=== PATIENT | male | born 1965 | race Caucasian/White ===

== ENCOUNTER 2020-06-27 08:05 | Observation (INO) | payer OTHER, SELFPAY ==
[2020-06-27] VITALS (11 sets, daily range): BP systolic 114–153; BP diastolic 58–95; PULSE 92–117; RESP 16–22; TEMP 36.8–39.6; O2SAT 96–99; BMI 35.9; BMI 40.0
--- NOTE | 2020-06-27 08:25 | CT_ITS ---
PROCEDURE: CT LOWER LEG RT W CON CLINICAL HISTORY: right leg cellulitis concern for NSTI COMPARISON: No exams were available for comparison TECHNIQUE: Axial images obtained with sagittal and coronal reformats. All CT scans at the facility use one or more dose reduction, viz: automated exposure control, ma/kV adjustment per patient size (including targeted exams where dose is matched to indication, i.e. head), or iterative reconstruction technique. FINDINGS: The visualized distal left femur and entire tibia and fibula appears intact. There is no demonstrated fracture, periosteal reaction or lytic/blastic destructive bony abnormality. Mild degenerative arthrosis of the proximal tibial fibular and medial femorotibial articulations. 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 There is extensive diffuse skin thickening and reticular pattern low-density edema in the superficial and deep subcutaneous fat of the entire lower extremity demonstrated without evidence of necrotizing fasciitis or involvement of the deep fascia between the muscles. No abscess or drainable loculated fluid collection is identified. Ankle mortise is anatomic. Intact talar dome and calcaneus. There is a small enthesophyte is seen of the calcaneus posteriorly at the insertion site of the Achilles tendon. Mild arthrosis of the tibiotalar, subtalar, talonavicular and calcaneocuboid articulations of the ankle/hindfoot. IMPRESSION: 1.Diffuse skin thickening and reticular pattern low-density edema in superficial/deep subcutaneous fat of the entire lower extremity is demonstrated, compatible with a given history of cellulitis. No evidence of necrotizing fasciitis or abscess formation depicted 2. 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 3. 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 Dictated by: Alessia Graham 06/27/2020 09:58 Electronically signed by Alessia Graham in [facility] 06/27/2020 09:58
--- NOTE | 2020-06-27 08:27 | HMH.EDGENADL ---
ED Disposition Clinical Impression: Cellulitis Qualifiers: Site of cellulitis: extremity Site of cellulitis of extremity: lower extremity Laterality: right Qualified Code(s): L03.115 - Cellulitis of right lower limb Disposition: Admitted As Inpatient Condition on Discharge: Fair Referrals: PCP,No [Primary Care Provider] - Time of Disposition: 10:09 - Critical Care Critical Care Time: No Attestation: On 06/27/20, the high probability of a clinically significant, sudden or life threatening deterioration of the following system(s) required my full and direct attention, intervention and personal management. The time I documented below is in addition to time spent performing reported procedures but includes the following listed in this critical care notation. Medical Decision Making - Medical Records Medical records reviewed: Yes: I reviewed the patient's medical records. - Oswald Inquiry Pt receiving controlled substance: No Vital Signs: 06/27/20 08:17 06/27/20 08:37 06/27/20 09:30 Temperature 103.3 F H Temperature Source Oral Pulse Rate [Radial] 117 H 103 H 100 H Respiratory Rate 18 22 22 Blood Pressure [Right Arm] 148/95 H 138/79 128/74 Blood Pressure Mean [Right Arm] 112 98 92 Blood Pressure Source [Right Arm] Automatic Cuff Automatic Cuff Automatic Cuff Blood Pressure Position [Right Arm] Sitting Supine Supine 02 Sat by Pulse Oximetry 98 99 98 Oxygen Delivery Method Room Air Room Air Room Air 06/27/20 10:00 06/27/20 10:30 Temperature 99.4 F Temperature Source Oral Pulse Rate [Radial] 99 H 96 H Respiratory Rate 22 22 Blood Pressure [Right Arm] 124/73 114/69 Blood Pressure Mean [Right Arm] 90 84 Blood Pressure Source [Right Arm] Automatic Cuff Automatic Cuff Blood Pressure Position [Right Arm] Supine Supine 02 Sat by Pulse Oximetry 97 98 Oxygen Delivery Method Room Air Room Air - Lab Data Lab Results 06/27/20 08:25: WBC 9.1, RBC 4.70, Hgb 13.6 L, Hct 41.0 L, MCV 87.3, MCH 28.9, MCHC 33.1, RDW 13.4, Plt Count 208, MPV 8.6, Neut % (Auto) 88.4 H, Lymph % (Auto) 5.7 L, [place] % (Auto) 5.3, Eos % (Auto) 0.4, Baso % (Auto) 0.3, Neut # (Auto) 8.0 H, Lymph # (Auto) 0.5 L, [place] # (Auto) 0.5, Eos # (Auto) 0.0, Baso # (Auto) 0.0, Total Counted 100, Neutrophils % (Manual) 87 H, Lymphocytes % (Manual) 7 L, Monocytes % (Manual) 5, Eosinophils % (Manual) 1, Platelet Estimate Normal, RBC Morphology Normal 06/27/20 08:25: Sodium 134 L, Potassium 3.5, Chloride 97 L, Carbon Dioxide 27, Anion Gap 13.5, BUN 15, Creatinine 0.90, Estimated Creat Clear 149, Estimated GFR 88, Est GFR ( Amer) 106, Glucose 129 H, Calcium 8.7, Total Bilirubin 1.0, AST 26, ALT 22, Alkaline Phosphatase 96, Total Creatine Kinase 45 L, Total Protein 7.1, Albumin 3.6, Globulin 3.5 H, Albumin/Globulin Ratio 1.0 L 06/27/20 08:25: Lactate 0.8 Result diagrams: 06/27/20 08:25 06/27/20 08:25 Orders (Tests/Meds): ED MEDICATIONS Generic Name Dose Route Start Last Admin Trade Name Freq PRN Reason Stop Dose Admin Vancomycin HCl 2,000 mg/ 250 mls @ 125 mls/hr 06/27/20 08:45 06/27/20 08:58 Sodium Chloride IV 06/27/20 10:44 125 mls/hr ONCE ONE Administration Sodium Chloride 3,400 mls @ 1,700 mls/hr 06/27/20 08:54 06/27/20 08:55 Sod Chlor 0.9% 1000ml Bag 30 ml/kg infuse over 2 hr (3400 ml) 06/27/20 10:53 1,700 mls/hr IV Administration .Q2H ONE Discontinued Medications Generic Name Dose Route Start Last Admin Trade Name Freq PRN Reason Stop Dose Admin Acetaminophen 1,000 mg 06/27/20 08:23 06/27/20 08:37 Tylenol 500mg Tablet PO 06/27/20 08:24 1,000 mg ONCE ONE Administration Sodium Chloride 1,000 mls @ 999 mls/hr 06/27/20 08:30 06/27/20 08:59 Sod Chlor 0.9% 1000ml Bag IV 06/27/20 09:30 Not Given .Q1H1M [place] Clindamycin Phosphate 600 mg/ 104 mls @ 100 mls/hr 06/27/20 08:23 06/27/20 08:38 Sodium Chloride IV 06/27/20 09:25 Not Given ONCE ONE Protocol Ioversol 75 ml 06/27
[2020-06-27 08:42] LABS: Basophils % 0.3 % (0.1-2.0); Eosinophils % 0.4 % (0.1-12.0); Hemoglobin 13.6 g/dL (14.1-18.0); Lymphocytes # 0.5 K/mm3 (0.7-4.5); Lymphocytes % 5.7 % (10-50); Mean Corpuscular HGB Conc 33.1 g/dL (31.8-35.4); Mean Corpuscular Hemoglobin 28.9 pg (27.0-31.2); Mean Corpuscular Volume 87.3 fl (80-94); Mean Platelet Volume 8.6 fl (7.4-10.4); Monocytes # 0.5 K/mm3 (0.1-1.0); Monocytes % 5.3 % (1.7-9.3); Neutrophils % 88.4 % (37.0-80.0); Platelet Count 208 K/mm3 (142-424); Red Cell Distribution Width 13.4 % (11.5-17.5); White Blood Count 9.1 K/mm3 (4.8-10.8)
[2020-06-27 08:44] LABS: Chloride 97 mmol/L (98-107)
[2020-06-27 08:45] LABS: Potassium 3.5 mmoL/L (3.5-5.1); Sodium 134 mmol/L (136-145)
[2020-06-27 08:46] LABS: MANUAL DIFFERENTIAL MANUAL DIFFERENTIAL (MANUAL DIFF)
[2020-06-27 08:47] LABS: Alanine Aminotransferase 22 U/L (12-78); Alkaline Phosphatase 96 U/L (38-126); Aspartate Amino Transferase 26 U/L (17-59); Blood Urea Nitrogen 15 mg/dl (9-20); Creatinine Clearance Estimated 149 mL/min (50-200); Estimated Glomerular Filt Rate 88 ml/min (>60); GFR (African American) 106 ML/MIN (>60)
[2020-06-27 08:48] LABS: Albumin Level 3.6 g/dl (3.5-5.0); Anion Gap 13.5 mEq/L (5-15); Calcium 8.7 mg/dl (8.4-10.2); Carbon Dioxide 27 mmol/L (22.0-30.0); Creatine Kinase 45 U/L (55-170); Globulin 3.5 g/dL (1.3-3.2); Glucose 129 mg/dl (74-100); Total Protein,Serum 7.1 g/dl (6.3-8.2)
[2020-06-27 08:58] LABS: Lactic Acid 0.8 mmol/L (0.7-2.1)
[2020-06-27 09:02] LABS: Eosinophils % 1 % (0-3); Lymphocytes % 7 % (10-50); Monocytes % 5 % (2-9); Neutrophils % 87 % (42-76); Platelet Estimate Normal; RBC Morphology Normal; Total Cells Counted 100
--- NOTE | 2020-06-27 09:03 | PC.NURSE ---
PT WITH RAD AT THIS TIME.
--- NOTE | 2020-06-27 10:03 | PC.NURSE ---
Sepsis bolus completed at this time.
--- NOTE | 2020-06-27 10:05 | PC.NURSE ---
Addendum entered by DIANDRA Valdez 06/27/20 10:26: PAGING PCP [facility] INSPECTOR () AT THIS TIME FOR ADMISSION Original Note: PAGING PCP SWITCHBOARD INSPECTOR () AT THIS TIME FOR ADMISSION
--- NOTE | 2020-06-27 10:24 | PC.NURSE ---
ON THE PHONE WITH AT THIS TIME
--- NOTE | 2020-06-27 10:29 | PC.NURSE ---
CARE MANAGEMENT ON THE PHONE FOR ADMISSION. PT IN OBS
--- NOTE | 2020-06-27 10:29 | PC.NURSE ---
PT admitted to OBS per CM
--- NOTE | 2020-06-27 10:30 | PC.NURSE ---
SPOKE TO [facility] FOR BED PLACEMENT AT THIS TIME
--- NOTE | 2020-06-27 10:52 | PC.NURSE ---
PT ADMITTED TO SECOND FLOOR BED #[id number]
--- NOTE | 2020-06-27 10:56 | PC.NURSE ---
Report Called to KRUPA Corrigan.
--- NOTE | 2020-06-27 11:00 | PC.NURSE ---
PT BEING TRANSPORTED TO SECOND FLOOR AT THIS TIME
--- NOTE | 2020-06-27 11:51 | HMH.PHAVTE ---
[facility] Pharmacy VTE Monitoring - Patient Demographics Admission date: 06/27/20 Report Date: 06/27/20 Time: 11:51 Allergies/Adverse Reactions: Patient Allergies No Known Allergies Allergy (Verified 06/27/20 08:22) Height: 1.78 m Weight: 126.552 kg Patient Problems: Current Active Problems Cellulitis (Acute) - VTE Risk Labs: VTE Related Lab Results Hgb 13.6 g/dL (14.1-18.0) L 06/27/20 08:25 Hct 41.0 % (42.0-52.0) L 06/27/20 08:25 Plt Count 208 K/mm3 (142-424) 06/27/20 08:25 BUN 15 mg/dl (9-20) 06/27/20 08:25 Creatinine 0.90 mg/dl (0.66-1.25) 06/27/20 08:25 Estimated Creat Clear 149 mL/min (50-200) 06/27/20 08:25 VTE Score: 4 VTE Risk Level: Low Risk Clinical Trial Participant: No - Prophylaxis VTE Prophylaxis Ordered?: Yes Types of VTE Prophylaxis: TEDS Knee High (to unaffected leg)
--- NOTE | 2020-06-27 13:08 | PC.NURSE ---
Late entry: Pt arrived to the floor at 1105
--- NOTE | 2020-06-27 14:13 | P.CONPHA_ITS ---
- Pharmacy Consult Date: 06/27/20 Time: 14:13 Referring provider: DR. SÁNCHEZ Reason for Consult:: VANCOMYCIN DOSING Allergies and ADEs:: Allergies Allergy/AdvReac Type Severity Reaction Status Date / Time No Known Allergies Allergy Verified 06/27/20 08:22 Home Medications:: Home Medications Medication Instructions Recorded Confirmed Type No Known Home Medications 06/27/20 06/27/20 History Height: 1.78 m Weight: 126.552 kg Laboratory Results:: Laboratory Results - last 24 hr 06/27/20 08:25: WBC 9.1, RBC 4.70, Hgb 13.6 L, Hct 41.0 L, MCV 87.3, MCH 28.9, MCHC 33.1, RDW 13.4, Plt Count 208, MPV 8.6, Neut % (Auto) 88.4 H, Lymph % (Auto) 5.7 L, [place] % (Auto) 5.3, Eos % (Auto) 0.4, Baso % (Auto) 0.3, Neut # (Auto) 8.0 H, Lymph # (Auto) 0.5 L, [place] # (Auto) 0.5, Eos # (Auto) 0.0, Baso # (Auto) 0.0, Total Counted 100, Neutrophils % (Manual) 87 H, Lymphocytes % (Manual) 7 L, Monocytes % (Manual) 5, Eosinophils % (Manual) 1, Platelet Estimate Normal, RBC Morphology Normal 06/27/20 08:25: Sodium 134 L, Potassium 3.5, Chloride 97 L, Carbon Dioxide 27, Anion Gap 13.5, BUN 15, Creatinine 0.90, Estimated Creat Clear 149, Estimated GFR 88, Est GFR ( Amer) 106, Glucose 129 H, Calcium 8.7, Total Bilirubin 1.0, AST 26, ALT 22, Alkaline Phosphatase 96, Total Creatine Kinase 45 L, Total Protein 7.1, Albumin 3.6, Globulin 3.5 H, Albumin/Globulin Ratio 1.0 L 06/27/20 08:25: Lactate 0.8 Medical History: Denies:: Cancer, Diabetes Mellitus Type 1, Diabetes Mellitus Type 2, MRSA Assessment and Plan - Assessment and plan all Dx Assessment and Plan for all problems:: BASED ON PATIENT'S FACTORS, RECOMMEND STARTING WITH VANCOMYCIN 2000 MG Q12H AT THIS TIME. PHARMACY WILL FOLLOW DAILY AND ADJUST APPROPRIATE.
--- NOTE | 2020-06-27 15:23 | SW/DCPLANNER ---
Addendum entered by Christiane Smith 06/28/20 12:01: [facility] Original Note: I have informed Cydney Castrejon that this patient is listed as a self-pay.
--- NOTE | 2020-06-27 17:03 | PC.NURSE ---
PT IS RESTING COMFORTABLY AT THIS TIME, NO NEEDS STATED, PT HAD DENIED PAIN T/O, EDEMA AND REDNESS PRESENT ON RLE. PT ON RA, NO SOA/COUGH, PT AMBULATES PER SELF AND TOLERATES WELL. VSS. WILL CONTINUE TO MONITOR
--- NOTE | 2020-06-27 19:24 | HMH.HP ---
*Admission Date: 06/27/20 *Chief complaint: cellulitis right leg *History of present illness: 4-year-old male who presented through the emergency room earlier today with fever, tachycardia. He had escalating pain in his right lower extremity since Wednesday. The right leg was found to be warm, red, with superficial blistering. He was evaluated with CT. Results are as follows CT IMPRESSION: 1.Diffuse skin thickening and reticular pattern low-density edema in superficial/deep subcutaneous fat of the entire lower extremity is demonstrated, compatible with a given history of cellulitis. No evidence of necrotizing fasciitis or abscess formation depicted 2. 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 3. 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 Is admitted for further evaluation and IV antibiotics. He relays that he is at a decent baseline for health and infrequently sees a physician. Not have a primary doctor. sees Dr. Tapia. He is a [employer] . [facility] History Medical History: Denies:: Cancer, Diabetes Mellitus Type 1, Diabetes Mellitus Type 2, MRSA *Have you ever received a pneumonia vaccine?: No *Have you received a flu vaccine this season?: No Amputation: No Fractures: No - *Social History Last grade of school completed: High school graduate Smoking Status: Never smoker Alcohol Intake: never *Occupational Status:: employed Housing: house Household Members: significant other *Travel in the last 8 weeks: None Family Hx:: Diabetes, Heart Attack, Hypertension, Kidney Disease, Stroke Review of Systems - Constitutional Reports fever(s), Reports malaise - Eyes Denies blurry vision - ENT Denies abnormal hearing - *Cardiovascular Reports leg swelling, Reports leg sores, Denies chest pain - *Respiratory Denies chest congestion, Denies shortness of breath - *Gastrointestinal Denies abdominal pain, Denies change in stools - *Genitourinary Denies difficulty urinating - *Musculoskeletal Reports abnormal walking, Reports other - Integumentary/Breasts Denies yellowing of the skin - *Neurologic Denies headache(s), Denies numbness, Denies weakness - Psychiatric Denies irritability - Endocrine Denies cold intolerance - Hematologic/Lymphatic Denies easy bleeding Meds Home Medications Medication Instructions Recorded Confirmed Type No Known Home Medications 06/27/20 06/27/20 History Allergies Allergy/AdvReac Type Severity Reaction Status Date / Time No Known Allergies Allergy Verified 06/27/20 08:22 Exam Vital signs and Labs for Last 24 Hours: Temp Pulse Resp BP Pulse Ox 100.1 F H 108 H 18 114/58 L 96 06/27/20 15:11 06/27/20 15:11 06/27/20 15:11 06/27/20 15:11 06/27/20 15:11 Laboratory Results - last 24 hr 06/27/20 08:25: WBC 9.1, RBC 4.70, Hgb 13.6 L, Hct 41.0 L, MCV 87.3, MCH 28.9, MCHC 33.1, RDW 13.4, Plt Count 208, MPV 8.6, Neut % (Auto) 88.4 H, Lymph % (Auto) 5.7 L, [place] % (Auto) 5.3, Eos % (Auto) 0.4, Baso % (Auto) 0.3, Neut # (Auto) 8.0 H, Lymph # (Auto) 0.5 L, [place] # (Auto) 0.5, Eos # (Auto) 0.0, Baso # (Auto) 0.0, Total Counted 100, Neutrophils % (Manual) 87 H, Lymphocytes % (Manual) 7 L, Monocytes % (Manual) 5, Eosinophils % (Manual) 1, Platelet Estimate Normal, RBC Morphology Normal 06/27/20 08:25: Sodium 134 L, Potassium 3.5, Chloride 97 L, Carbon Dioxide 27, Anion Gap 13.5, BUN 15, Creatinine 0.90, Estimated Creat Clear 149, Estimated GFR 88, Est GFR ( Amer) 106, Glucose 129 H, Calcium 8.7, Total Bilirubin 1.0, AST 26, ALT 22, Alkaline Phosphatase 96, Total Creatine Kinase 45 L, Total Protein 7.1, Albumin 3.6, Globulin 3.5 H, Albumin/Globulin Ratio 1.0 L 06/27/20 08:25: Lactate 0.8 I & O for Last 24 hours: Intake & Output 06/24/20 06/25/20 06/26/20 06/27/20 23:59 23:59 23:59 23:59 Intake Total 1912 / 191 Output Total 600 / 6
[2020-06-28 03:21] VITALS: BP 141/78; PULSE 95; RESP 18; TEMP 37.6; O2SAT 98
--- NOTE | 2020-06-28 04:41 | PC.NURSE ---
No changes overnight. RLE elevated. No complaints reported to staff. Tolerating IV ABX.
[2020-06-28 05:00] VITALS: BMI 40.0
[2020-06-28 06:45] LABS: Basophils % 0.2 % (0.1-2.0); Eosinophils # 0.1 K/mm3 (0.0-0.4); Eosinophils % 0.8 % (0.1-12.0); Hematocrit 35.4 % (42.0-52.0); Lymphocytes # 1.4 K/mm3 (0.7-4.5); Mean Corpuscular HGB Conc 32.5 g/dL (31.8-35.4); Mean Corpuscular Hemoglobin 29.3 pg (27.0-31.2); Mean Corpuscular Volume 90.2 fl (80-94); Mean Platelet Volume 8.2 fl (7.4-10.4); Monocytes # 0.5 K/mm3 (0.1-1.0); Monocytes % 6.3 % (1.7-9.3); Neutrophils # 6.1 K/mm3 (1.8-7.8); Neutrophils % 75.7 % (37.0-80.0); Platelet Count 197 K/mm3 (142-424); Red Blood Count 3.92 M/mm3 (4.60-6.20); Red Cell Distribution Width 13.8 % (11.5-17.5); White Blood Count 8.1 K/mm3 (4.8-10.8)
[2020-06-28 06:47] LABS: Chloride 102 mmol/L (98-107); Sodium 136 mmol/L (136-145)
[2020-06-28 06:50] LABS: Blood Urea Nitrogen 11 mg/dl (9-20); Carbon Dioxide 29 mmol/L (22.0-30.0); Creatinine Clearance Estimated 166 mL/min (50-200); Estimated Glomerular Filt Rate 88 ml/min (>60); GFR (African American) 106 ML/MIN (>60)
[2020-06-28 06:51] LABS: Calcium 8.2 mg/dl (8.4-10.2); Glucose 99 mg/dl (74-100)
[2020-06-28 06:52] LABS: Lactic Acid 0.6 mmol/L (0.7-2.1)
[2020-06-28 07:45] LABS: Hemoglobin 11.6 g/dL (14.1-18.0)
[2020-06-28 08:00] VITALS: BP 143/81; PULSE 95; RESP 20; TEMP 37.5; O2SAT 99
--- NOTE | 2020-06-28 12:50 | HMH.DCSUM ---
General - General Admission date:: 06/27/20 HPI HPI: 4-year-old male who presented through the emergency room earlier today with fever, tachycardia. He had escalating pain in his right lower extremity since Wednesday. The right leg was found to be warm, red, with superficial blistering. He was evaluated with CT. Results are as follows CT IMPRESSION: 1.Diffuse skin thickening and reticular pattern low-density edema in superficial/deep subcutaneous fat of the entire lower extremity is demonstrated, compatible with a given history of cellulitis. No evidence of necrotizing fasciitis or abscess formation depicted 2. 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 3. 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 Is admitted for further evaluation and IV antibiotics. He relays that he is at a decent baseline for health and infrequently sees a physician. Not have a primary doctor. sees Dr. Tapia. He is a [employer] . Hospital Course Hospital Course: iv unasyn was added to iv vanco bc growing gpc by prelim clinically stable rle improving slightly less warmth less redness temp in the 99 range overnight Objective Vital signs: Temp Pulse Resp BP Pulse Ox 99.5 F 95 H 20 143/81 H 99 06/28/20 08:00 06/28/20 08:00 06/28/20 08:00 06/28/20 08:00 06/28/20 08:00 no acute distress, obese - *Routine HEENT Exam Head: Present: normocephalic, atraumatic Eye: Absent: conjunctival icterus, nystagmus - *Routine Neck Exam Present: supple, full ROM - *Routine Respiratory Exam Present: CTA bilaterally. Absent: accessory muscle use, respiratory distress, rhonchi, crackles - *Routine Cardiovascular Exam Present: RRR, Normal S1, Normal S2. Absent: murmur - *Routine Abdominal Exam Present: soft, obese. Absent: tenderness - *Routine Extremities Exam Present: edema, tenderness. Absent: cyanosis, clubbing, calf tenderness Comments: erythema warmth edema superficial bullous blister formation ant/post calf improved from yesterday - *Routine Skin Exam Present: intact, warm. Absent: cyanosis, jaundice - *Routine Neurological Exam Present: alert, oriented X3, moving all extremities. Absent: motor deficit, altered mental status - Routine Psychiatric Exam Present: normal affect, cooperative, good insight, good judgment Results Labs on day of discharge: Labs from last 24 hours 06/28/20 06/28/20 06/28/20 06:30 06:30 06:30 WBC RBC Hgb Hct MCV MCH MCHC RDW Plt Count MPV Neut % (Auto) Lymph % (Auto) [place] % (Auto) Eos % (Auto) Baso % (Auto) Neut # (Auto) Lymph # (Auto) [place] # (Auto) Eos # (Auto) Baso # (Auto) Sodium 136 Potassium 4.0 Chloride 102 Carbon Dioxide 29 Anion Gap 9.0 BUN 11 D Creatinine 0.90 Estimated Creat Clear 166 Estimated GFR 88 Est GFR ( Amer) 106 Glucose 99 D Hemoglobin A1c 6.0 Lactate 0.6 L Calcium 8.2 L 06/28/20 06:30 WBC 8.1 RBC 3.92 L Hgb 11.6 L D Hct 35.4 L MCV 90.2 MCH 29.3 MCHC 32.5 RDW 13.8 Plt Count 197 MPV 8.2 Neut % (Auto) 75.7 Lymph % (Auto) 17.0 [place] % (Auto) 6.3 Eos % (Auto) 0.8 Baso % (Auto) 0.2 Neut # (Auto) 6.1 Lymph # (Auto) 1.4 [place] # (Auto) 0.5 Eos # (Auto) 0.1 Baso # (Auto) 0.0 Sodium Potassium Chloride Carbon Dioxide Anion Gap BUN Creatinine Estimated Creat Clear Estimated GFR Est GFR ( Amer) Glucose Hemoglobin A1c Lactate Calcium Preliminary micro results at discharge 06/27/20 08:23 Blood Culture - Preliminary Blood Gram Positive Cocci 06/27/20 08:23 Blood Culture - Preliminary Blood Gram Positive Cocci DS: Diagnosis - Discharge Diagnosis (1) Cellulitis Status: Acute (2) Obesity Status: Chronic (3) Fever
== END 2020-06-28 13:45 ==
LOC: ER 10:24 → 2ND 11:03
PROVIDERS: Admitting Provider Family Medicine; Emergency Provider Emergency Medicine; Visit Provider Family Medicine
DX: L03.115 Cellulitis of right lower limb (principal)
CPT/HCPCS: 36415; 73701; 80048; 80053; 82550; 83036; 83605; 85007; 85025; 87040; 87077; 87186; 96365; 96367; 99285; G0378; J3370; Q9967

== ENCOUNTER 2021-04-07 13:24 | Emergency (ER) | payer OTHER, SELFPAY ==
[2021-04-07] VITALS (30 sets, daily range): BP systolic 84–218; BP diastolic 42–142; PULSE 111–144; RESP 11–36; TEMP 36.8; O2SAT 10–98; BMI 39.4
--- NOTE | 2021-04-07 | ECG_ITS ---
APPROVED REPORT Exam: Resting ECG HR:117 bpm ECG Measurements Heart Rate 117 AXES ID 182 P 89 QRSd 96 QRS 187 QT 318 T 80 QTc 443 Conclusion Sinus tachycardia Right atrial enlargement Right superior axis deviation Pulmonary disease pattern Abnormal ECG Electronically signed by : Nate Cano, 04/07/2021 18:13:10
--- NOTE | 2021-04-07 13:24 | XR_ITS ---
PROCEDURE: XR CHEST PORTABLE CLINICAL HISTORY: SOA COMPARISON: No exams were available for comparison FINDINGS: Bilateral mid and lower zone hazy infiltrates are noted. No lobar consolidation, pleural effusions or pneumothorax. The cardiac size is prominent, likely accentuated by AP technique. Central pulmonary vasculature is within normal limits. Visualized osseous structures are unremarkable. IMPRESSION: Bilateral mid and lower zone hazy infiltrates, may represent minor infection/inflammation. No lobar consolidation. Dictated by: Carol Dong 04/07/2021 14:13 Carol Dong in [facility] 04/07/2021 14:13
--- NOTE | 2021-04-07 13:39 | PC.NURSE ---
Xray done bedside.
[2021-04-07 13:42] LABS: ABG Base Excess -6.1 mmol/L (-2.4-2.3); ABG HCO3 22.8 mmhg (22.0-26.0); ABG Oxygen Saturation 93 % (90-100); ABG PO2 80.7 mmhg (80-100); ABG TCO2 24.9 mmhg (23-27)
[2021-04-07 13:43] LABS: Oxygen 100% NRB %
[2021-04-07 13:44] LABS: Allen's Test Acceptable; Source Right Radial
[2021-04-07 13:45] LABS: Adenovirus,PCR Not Detected (NotDetected); Bordetella Pertussis Not Detected (NotDetected); Chlamydophila Pneumoniae, PCR Not Detected (NotDetected); Coronavirus 19, PCR Not Detected (NotDetected); Coronavirus 229E Not Detected (NotDetected); Coronavirus NL63 Not Detected (NotDetected); Coronavirus OC43 Not Detected (NotDetected); Coronovirus HKU1,PCR Not Detected (NotDetected); Human Metapneumovirus Not Detected (NotDetected); Influenza A, PCR Not Detected (NotDetected); Influenza AH1, 2009 Not Detected (NotDetected); Influenza AH1, PCR Not Detected (NotDetected); Influenza AH3,PCR Not Detected (NotDetected); Influenza B, PCR Not Detected (NotDetected); Mycoplasma Pneumoniae, PCR Not Detected (NotDetected); Parainfluenza 1, PCR Not Detected (NotDetected); Parainfluenza 2, PCR Not Detected (NotDetected); Parainfluenza 3, PCR Not Detected (NotDetected); Parainfluenza 4, PCR Not Detected (NotDetected); Respiratory Syncytial Virus Not Detected (NotDetected); Rhinovirus/Enterovirus Not Detected (NotDetected)
[2021-04-07 13:45] LABS: ABG PCO2 67.1 mmhg (35.0-45.0); ABG PH 7.15 mmol/L (7.35-7.45)
[2021-04-07 13:50] LABS: Basophils # 0.2 K/mm3 (0-0.2); Eosinophils # 1.2 K/mm3 (0.0-0.4); Hematocrit 51.2 % (42.0-52.0); Hemoglobin 15.9 g/dL (14.1-18.0); Lymphocytes % 19.9 % (10-50); Mean Corpuscular HGB Conc 31.1 g/dL (31.8-35.4); Mean Corpuscular Hemoglobin 27.8 pg (27.0-31.2); Mean Corpuscular Volume 89.6 fl (80-94); Mean Platelet Volume 8.5 fl (7.4-10.4); Monocytes # 0.8 K/mm3 (0.1-1.0); Monocytes % 5.3 % (1.7-9.3); Neutrophils % 65.9 % (37.0-80.0); Platelet Count 328 K/mm3 (142-424); Red Blood Count 5.71 M/mm3 (4.60-6.20); Red Cell Distribution Width 12.8 % (11.5-17.5); White Blood Count 15.2 K/mm3 (4.8-10.8)
[2021-04-07 13:57] LABS: Chloride 102 mmol/L (98-107); MANUAL DIFFERENTIAL MANUAL DIFFERENTIAL (MANUAL DIFF); Sodium 143 mmol/L (136-145)
[2021-04-07 13:59] LABS: Potassium 3.8 mmoL/L (3.5-5.1)
[2021-04-07 14:00] LABS: Anion Gap 17.8 mEq/L (5-15); Blood Urea Nitrogen 15 mg/dl (9-20); Calcium 9.9 mg/dl (8.4-10.2); Carbon Dioxide 27 mmol/L (22.0-30.0); Creatinine Clearance Estimated 3 mL/min (50-200); Estimated Glomerular Filt Rate 69 ml/min (>60); GFR (African American) 84 ML/MIN (>60); Glucose 131 mg/dl (74-100)
[2021-04-07 14:03] LABS: Lactic Acid 4.3 mmol/L (0.7-2.1)
--- NOTE | 2021-04-07 14:04 | PC.NURSE ---
aware of lactic
[2021-04-07 14:09] LABS: NT Pro Brain Natriuretic Pep. 974 pg/mL (0-125)
--- NOTE | 2021-04-07 14:10 | PC.NURSE ---
Called radiology for head ct and for xray for tube placement
[2021-04-07 14:12] LABS: Troponin I 0.02 ng/ml (0.00-0.034)
--- NOTE | 2021-04-07 14:20 | XR_ITS ---
PROCEDURE: XR CHEST PORTABLE CLINICAL HISTORY: intubation COMPARISON: CR XR CHEST PORTABLE from 04/07/2021 FINDINGS: ET tube is noted with its tip measuring 2.5 centimeters above the level of lilian, in satisfactory position. No lobar consolidation, pleural effusions or pneumothorax. Mild cardiomegaly with central pulmonary vascular prominence is noted. Hazy in infiltrates are noted in the lungs bilaterally. Visualized osseous structures are unremarkable. IMPRESSION: No lobar consolidation or pleural effusions. Mild cardiomegaly and pulmonary vascular prominence. Dictated by: Carol Dong 04/07/2021 14:45 Carol Dong in [facility] 04/07/2021 14:45
--- NOTE | 2021-04-07 14:27 | CT_ITS ---
PROCEDURE: CT ANGIO CHEST CLINCIAL INDICATION: resp distress COMPARISON: No exams were available for comparison TECHNIQUE: IV Contrast: 70ML Isovue 370 Axial images obtained with sagittal and coronal reformats. All CT scans at the facility use one or more dose reduction, viz: automated exposure control, ma/kV adjustment per patient size (including targeted exams where dose is matched to indication, i.e. head), or iterative reconstruction technique. FINDINGS: Slightly limited study due to phase of IV contrast. HEART AND MEDIASTINAL STRUCTURES: No evidence of occlusive pulmonary embolism is noted. The pulmonary trunk and main pulmonary arteries opacify normally without evidence of focal filling defects. Minor subsegmental are nonocclusive emboli cannot be completely excluded. Mild cardiomegaly is noted. No pericardial effusions. LUNGS AND PLEURAL SPACES: There is subsegmental consolidation noted in the right lower lobe. Patchy subsegmental consolidation in the left lower lobe. Multifocal ground-glass densities are noted, predominantly in bilateral upper lobes at, left upper and left upper lobe. No evidence of pleural effusions. No pneumothorax. The central tracheobronchial tree is patent. There is peribronchial thickening of the bronchials bilaterally. Endotracheal tube is noted. No suspicious lung nodules are noted. Mediastinal lymph nodes, largest in the right paratracheal location measuring 2 times 1.5 centimeters is noted. Subcarinal lymph node measuring 2.4 times 1.6 centimeters is noted. Few scattered prevascular lymph nodes are noted. BONY STRUCTURES: No acute bony abnormalities apparent. UPPER ABDOMEN: Small hiatus hernia is noted. Minor multilevel degenerative changes of the visualized ADDITIONAL FINDINGS: No other significant abnormalities. IMPRESSION: No central pulmonary embolism within the limitations of the study. Multifocal patchy airspace opacities, and ground-glass densities in the lungs bilaterally, concerning for atypical infection/inflammation including viral pneumonias. No evidence of pleural effusions. Dictated by: Carol Dong 04/07/2021 15:20 Carol Dong in [facility] 04/07/2021 15:20
[2021-04-07 14:30] LABS: Thyroid Stimulating Hormone 1.99 uIU/mL (0.465-4.68)
[2021-04-07 14:39] LABS: Microscopic, Urine URINE MICROSCOPIC (MICROSCOPIC)
[2021-04-07 14:44] LABS: Appearance,Urine CLEAR (Clear); Bilirubin,Urine Negative (Negative); Blood, Urine 3+ (Negative); Color,Urine YELLOW (Yellow); Glucose,Urine (UA) Negative (Negative); Ketones,Urine Negative (Negative); Leukocyte Esterase,Urine Negative (Negative); Nitrate,Urine Negative (Negative); PH,Urine 5.5 (5.0-8.5); Protein,Urine 3+ (Negative); Specific Gravity, Urine >= 1.030 (1.005-1.030); Urobilinogen,Urine 0.2 EU/dl (0.2)
--- NOTE | 2021-04-07 14:47 | [facility].EDSOB ---
ED Disposition Clinical Impression: Acute respiratory failure with hypoxia and hypercapnia, Hypertensive emergency, Atypical pneumonia Bilateral pneumonia Qualifiers: Pneumonia type: due to unspecified organism Lung location: lower lobe of lung Qualified Code(s): J18.9 - Pneumonia, unspecified organism Disposition: [facility] Condition on Discharge: Critical Referrals: Provider,Referral, [Referring] - - Critical Care Critical Care Time: Yes Attestation: On 04/07/21, the high probability of a clinically significant, sudden or life threatening deterioration of the following system(s) required my full and direct attention, intervention and personal management. The time I documented below is in addition to time spent performing reported procedures but includes the following listed in this critical care notation. Total Critical Care Time: 45 Vital system(s) involved:: Circulatory Failure, Metabolic Failure, Respiratory Failure My critical care processes included: Assessment & monitoring of V/S, Initial and Re-exams, Data Review/Interpretation, Coordinating Care, Medication Orders and management, Documentation Medical Decision Making - Medical Records Medical records reviewed: Yes: I reviewed the patient's medical records. - Oswald Inquiry Pt receiving controlled substance: Yes Oswald was queried for this patient: No Reason not queried -: Emergent pt cond-no time Risks and benefits of using a controlled substance: were discussed with pt by me Vital Signs: 04/07/21 13:49 04/07/21 14:04 04/07/21 14:10 Pulse Rate 120 H 144 H 120 H Respiratory Rate 36 H 14 Blood Pressure 212/129 H 164/142 H 214/142 H Blood Pressure Mean 144 148 163 02 Sat by Pulse Oximetry 91 L 10 L 98 04/07/21 14:14 04/07/21 14:20 04/07/21 14:35 Pulse Rate 143 H Respiratory Rate 11 L 14 Blood Pressure 182/110 H 218/138 H 213/132 H Blood Pressure Mean 134 160 150 02 Sat by Pulse Oximetry 98 98 04/07/21 14:40 04/07/21 15:27 04/07/21 15:31 Pulse Rate 126 H 132 H 120 H Respiratory Rate 20 20 Blood Pressure 214/133 H 185/120 H 199/107 H Blood Pressure Mean 157 149 137 02 Sat by Pulse Oximetry 94 L 93 L 95 - Lab Data Lab Results 04/07/21 13:25: WBC 15.2 H, RBC 5.71, Hgb 15.9, Hct 51.2, MCV 89.6, MCH 27.8, MCHC 31.1 L, RDW 12.8, Plt Count 328, MPV 8.5, Neut % (Auto) 65.9, Lymph % (Auto) 19.9, [place] % (Auto) 5.3, Eos % (Auto) 8.0, Baso % (Auto) 1.0, Neut # (Auto) 10.0 H, Lymph # (Auto) 3.0, [place] # (Auto) 0.8, Eos # (Auto) 1.2 H, Baso # (Auto) 0.2, Total Counted 100, Neutrophils % (Manual) 63, Lymphocytes % (Manual) 17, Atypical Lymphs % 5.0, Monocytes % (Manual) 9, Eosinophils % (Manual) 6 H, Platelet Estimate Normal, RBC Morphology Normal 04/07/21 13:25: Sodium 143, Potassium 3.8, Chloride 102, Carbon Dioxide 27, Anion Gap 17.8 H, BUN 15, Creatinine 1.10, Estimated Creat Clear 3, Estimated GFR 69, Est GFR ( Amer) 84, Glucose 131 H, Calcium 9.9, Troponin I 0.02 04/07/21 13:25: Lactate 4.3 H 04/07/21 13:25: Chlamy pneumoniae PCR Not detected, Adenovirus (PCR) Not detected, B. pertussis DNA (PCR) Not detected, Coronavirus OC43 (PCR) Not detected, Coronavirus HKU1 (PCR) Not detected, Coronavirus 229E (PCR) Not detected, SARS-CoV-2 (PCR) Not detected, Coronavirus NL63 (PCR) Not detected, Human Metapneumovir PCR Not detected, Influenza A (H1) PCR Not detected, Influ A (H1N1/09) PCR Not detected, Influenza A (H3) PCR Not detected, Influenza Type A (PCR) Not detected, Influenza Type B (PCR) Not detected, M. pneumoniae (PCR) Not detected, Parainfluenza 1 (PCR) Not detected, Parainfluenza 2 (PCR) Not detected, Parainfluenza 3 (PCR) Not detected, Parainfluenza 4 (PCR) Not detected, RSV (PCR) Not detected, Entero/Rhino (PCR) Not detected 04/07/21 13:25: PT 11.3, INR 0.95, APTT 25.4 04/07/21 13:25: NT-Pro-B Natriuret Pep 974 H, TSH 1.99 04/07/21 13:33: Specimen Source Right radial, O2 % 100% nrb, ABG pH 7.15 L*, ABG pCO2 67.1 H, ABG pO2
[2021-04-07 14:54] LABS: Bacteria,Urine 2+ /lpf
[2021-04-07 15:02] LABS: Amphetamine/Metha Screen,Urine Negative ng/ml (<1000); Benzodiazepines Screen,Urine Negative ng/ml (<200)
[2021-04-07 15:03] LABS: Barbiturates Screen,Urine Negative ng/ml (<200)
[2021-04-07 15:04] LABS: Cannabinoid Screen,Urine Negative ng/ml (<50); Cocaine Screen,Urine Negative ng/ml (<300)
[2021-04-07 15:05] LABS: Methadone Screen,Urine Negative ng/ml (<300); Opiate Screen,Urine Negative ng/ml (<300)
--- NOTE | 2021-04-07 15:05 | PC.NURSE ---
PT returned from CT
[2021-04-07 15:06] LABS: Phencyclidine Screen,Urine Negative ng/ml (<25)
--- NOTE | 2021-04-07 15:25 | PC.NURSE ---
PT arrives in resp distress and is c/o feeling SOA and cough, Tried to get patient to calm down and leave oxygen on. HE continues to pull O2 off of his face and advises that he can't breath. Pt jumps up and goes to restroom and when he returns pt is yoder in color and O2 sats are 68%. PT placed on NRB and MD at bedside immediately. ABG obtained and results given to MD. Bipap ordered and pt is very anxious, 2mg of ativan given at this time. Pt sats continue to remain in the 70's. MD makes decision to intubate patient at 1400. Pt given Etomidate and Atilio @ [address] Restrepo intubated patient at 1411 with 7.5 ET tube 25 @ lip. No issues, color change noted on CO2 detector and tube placement confirmed with x-ray. Propofol drip started at 50mcg/kg/min per MD. Head of bed elevated 30degrees. No issues at this time. Pt on monitor with v/s being obtained every 5 mins. PT left for CT with resp, and , hotel custodian @ approx. 1455
[2021-04-07 15:29] LABS: ABG Base Excess -4.2 mmol/L (-2.4-2.3); ABG HCO3 24.7 mmhg (22.0-26.0); ABG Oxygen Saturation 94 % (90-100); ABG PO2 82.7 mmhg (80-100); ABG TCO2 26.9 mmhg (23-27)
[2021-04-07 15:31] LABS: Allen's Test Patient Unable; Oxygen 50 %; PEEP 7; Source Right Radial; Tidal Volume 450; Vent Rate 14
[2021-04-07 15:33] LABS: ABG PCO2 72.5 mmhg (35.0-45.0); ABG PH 7.15 mmol/L (7.35-7.45)
[2021-04-07 15:41] LABS: INR 0.95 (0.9-1.1); Prothrombin Time 11.3 seconds (10.1-12.5)
[2021-04-07 15:42] LABS: Activated Partial Thrombo Time 25.4 seconds (22.8-30.6)
--- NOTE | 2021-04-07 15:45 | PC.NURSE ---
Called pharmacy for fentanyl drip
[2021-04-07 15:46] LABS: Eosinophils % 6 % (0-3); Lymphocytes % 17 % (10-50); Monocytes % 9 % (2-9); Neutrophils % 63 % (42-76); Platelet Estimate Normal; RBC Morphology Normal; Total Cells Counted 100
--- NOTE | 2021-04-07 15:56 | PC.NURSE ---
Calling [facility] at this time
--- NOTE | 2021-04-07 16:10 | PC.NURSE ---
[facility] advised that would be getting Dr. Cardenas on the line and they would call back as soon as they did. Transfer center advised they did have an ICU bed available. PT resting at this time, b/p decreasing and at bedside
--- NOTE | 2021-04-07 16:12 | PC.NURSE ---
speaking with Dr. Cardenas
--- NOTE | 2021-04-07 16:35 | PC.NURSE ---
Called for helicopter. [facility] accepted flight
--- NOTE | 2021-04-07 16:36 | PC.NURSE ---
pt was becoming restless. MD ordered for Fentanyl drip to be running at 100mcg/min and to increase propofol drip to 60mcg/min. Pt was also given 100mg bolus of propofol and 2mg of ativan per MD orders.
[2021-04-07 16:51] LABS: Troponin I 0.05 ng/ml (0.00-0.034)
--- NOTE | 2021-04-07 17:25 | PC.NURSE ---
[employer] at bedside. Fentanyl and propofol drips stopped at their request. Drips wasted and disposed of.
[2021-04-07 17:45] LABS: Reflex Lactic Add Lactic Reflex
== END 2021-04-07 18:06 | disposition short-term general hospital (02) ==
PROVIDERS: Emergency Provider Emergency Medicine; PCP Emergency Medicine
DX: J18.9 Pneumonia, unspecified organism (principal); J96.01 Acute respiratory failure with hypoxia; I16.1 Hypertensive emergency; Z20.822 Contact with and (suspected) exposure to COVID-19; N17.9 Acute kidney failure, unspecified
CPT/HCPCS: 31500; 36415; 71045; 71275; 80048; 80305; 81001; 82803; 83605; 83880; 84443; 84484; 85007; 85025; 85610; 85730; 87040; 87077; 87086; 87581; 87633; 87798; 93005; 96365; 96366; 96367; 96375; 96376; 99285; J2704; Q9967

== ENCOUNTER → 2021-12-10 12:27 | Outpatient (CLI) | payer OTHER, SELFPAY | PROVIDERS: Visit Provider Nurse Practitioner | DX: U07.1 COVID-19 (principal) | CPT/HCPCS: C9803; U0003; U0005 ==